=== PATIENT | male | born 1965 | race Caucasian/White ===

== ENCOUNTER → 2017-03-12 07:44 | Outpatient (CLI) | payer MEDICARE ==
[2014-11-25 13:59] VITALS: BMI 21.3
[~2017-03-12 07:44] MED LIST: BAYER CHEWABLE81 MG PO; FLUTICASONE PRO16 GM NASAL; NICODERM C1 PATCH .1 TRANSDERM; OXYCODONE HCL5 MG PO; SOMA350 MG PO; VALIUM10 MG PO
== END | disposition home or self-care (01) ==
LOC: D.MRI 07:44
DX: M54.5 Low back pain (principal)

== ENCOUNTER 2018-10-23 18:15 | Inpatient (IN) | payer OTHER ==
[~2018-10-23] VITALS: Ht 167.6 cm; Wt 58.1 kg
--- NOTE | ~2018-10-23 | HEMODYNAMI ---
PATIENT:EDUARD BELL MEDICAL RECORD: [id number] : 67 LOCATION:[facility] D.2116 ADMISSION DATE: 10/23/18 Generatedon:10/24/201816:07 Patient name: EDUARD BELL Patient #: [id number] SSN: : 1965 Date of study: 10/24/2018 Page: Of Hemodynamic Procedure Report Patient Data Patient Demographics Procedure consent was obtained First Name: EDUARD Gender: Male Last Name: RAY : 1965 Middle Initial: BEBO Age: 53 year(s) Patient #: [id number] Race: Unknown Additional ID: [id number] Contact details Address: [address] [place] [address] State: [facility] Zip code: [address] Past Medical History Allergies Allergen Reaction Date Comments Reported Other allergy 10/24/2018 PCN, Methocarbamol, Robaxin Admission Admission Data Admission Date: 10/23/2018 Admission Time: 18:15 Room #: D.2116 Lab Results Lab Result Date: 10/24/2018 Lab Result Time: 0:00 Biochemistry Name Units Result Min Max BUN mg/dl 11 --(-*--)-- 7 18 Creatinine mg/dl 0.9 --(-*--)-- 0.6 1.3 CBC Name Units Result Min Max Hemoglobin g/dl 12.4 *-(----)-- 13.5 17.5 Procedure Procedure Types Cath Procedure Diagnostic Procedure C LH w/Coronaries PCI Procedure Coronary Stent Coronary Stent Initial Procedure Description Procedure Date Procedure Date: 10/24/2018 Procedure Start Time: 15:33 Procedure End Time: 16:06 Procedure Staff Name Function Eduard Hoyt MD Performing Physician Kamila Law RT Monitor Lisseth Hood RT Scrub Tawny Chopra RT Scrub Bayron Jensen RN Nurse Procedure Data Cath Procedure Fluoroscopy Diagnostic fluoroscopy Total fluoroscopy Time: 7.3 time: 7.3 min min Diagnostic fluoroscopy Total fluoroscopy dose: 753 dose: 753 mGy mGy Contrast Material Contrast Material Type Amount (ml) Isovue 300 123 Entry Location Entry Primary Successful Side Size Upsize Upsize Entry Closure Arechiga ccessful Closure Location (Fr) 1 (Fr) 2 (Fr) Remarks Device Remarks Radial Right 6 Fr Mechanical TR band artery Short Compression Estimated blood loss: 10 ml Diagnostic catheters Device Type Used For End Catheter Placement DIAGNOSTIC [place] 110cm 5 Procedure Fr catheter ([id number]) Procedure Complications No complications Procedure Medications Medication Administration Route Dosage 0.9% NaCl I.V. 100 ml/hr Oxygen etCO2 Nasal cannula 2 l/min Heparin Flush Bag added to field 2 bags (1000units/500ml NS) Lidocaine 2% added to field 20 Radial Cocktail added to field 1 syringe (Verapomil 2mg/Nitro 400mcg/Heparin 1500units) Versed I.V. 1 mg Fentanyl I.V. 50 mcg Versed I.V. 1 mg Fentanyl I.V. 50 mcg Radial Cocktail I.A. 1 syringe (Verapomil 2mg/Nitro 400mcg/Heparin 1500units) Versed I.V. 1 mg Heparin Bolus I.V. 5000 units Integrilin (Bolus I.V. 5 ml 2mg/ml) Integrilin (Bolus wasted 5 ml 2mg/ml) Hemodynamics Rest HGB: 12.4 (g/dl) Heart Rate: 67 (bpm) Pressure Samples Time Site Value (mmHg) Purpose Heart Use Rate(bpm) 15:40 LV 90/1,6 Snapshot 67 15:41 AO 68/43(54) Pullback 70 Gradients Valve Time Site Site 2 Mean SEP/DFP Peak To Heart Use 1 (mmHg) (sec/min) Peak Rate (mmHg) (bpm) Aortic 15:41 LV AO 6 11 70 68/43(54) Calculations Valve P-P Mean Valve Index Valve Source Name Gradient Area Flow (cm2) Aortic 6 6 Snapshots Pre Cath Intra NCS Post Cath Vital Signs Time Heart Resp SPO2 etCO2 NIBP Rhythm Pain Sedation Rate (ipm) (%) (mmHg) (mmHg) Status Level (bpm) 15:05:29 55 15 100 0 99/64(76) NSR 0 (11) 10(A) , No pain 15:09:27 56 11 100 36.1 106/72(81) NSR 0 (11) 10(A) , No pain 15:13:33 52 16 100 38.3 100/58(73) NSR 0 (11) 10(A) , No pain 15:17:34 54 13 100 30.8 93/59(72) NSR 0 (11) 10(A) , No pain 15:21:32 51 11 100 0 96/62(73) NSR 0 (11) 10(A) , No pain 15:25:36 50 14 100 0 98/56(73) NSR 0 (11) 10(A) , No pain 15:29:37 54 10 97 0 95/58(72) NSR 0 (11) 10(A) , No pain 15:33:39 53 19 99 0 104/55(69) NSR 0 (11) 10(A) , No pain 15:37:39 68 14 98 0 98/74(85) NSR 0 (11) 10(A) , No pain 15:41:42 67 19 96 0 88/50(65) NSR 0 (11) 9(A) , No pain 15:45:46 60 19 94 0 87/42(63) NSR 0 (11) 9(A) , No pain 15:49:46 78 15 95 0 97/52(70) NSR 0 (11) 9(A) , No pain 15:53:50 67 18 97 0 91/54(66) NSR 0 (11) 10(A) , No pain 15:57:51 72 19 98 0 96/51(71) NSR 0 (11) 10(A) , No pain 16:01:49 68 13 98 0 108/65(81) NSR 0 (11) 10(A) , No pain 16:05:53 58 11 99 0 108/69(85) NSR 0 (11) 10(A) , No pain Medications Time Medication Route Dose Verified Delivered Reason Not es Effectiveness by by 15:12:14 0.9% NaCl I.V. 100 Bayron Bayron Per physician ml/hr Camila Jensen RN RN 15:12:29 Oxygen etCO2 2 l/min Bayron Bayron for low 02 sats Nasal Camila Jensen cannula RN RN 15:12:44 Heparin Flush added 2 bags Bayron Bayron used for Bag to Camila Jensen procedure (1000units/500ml field RN RN NS) 15:12:55 Lidocaine 2% added 20ml Bayron Bayron for local to vial Lorigan Loredwin anesthetic RN RN 15:13:19 Radial Cocktail added 1 Bayron Bayron used for (Verapomil to syringe Lorigan Loredwin procedure 2mg/Nitro field RN RN 400mcg/Heparin 1500units) 15:27:54 Versed I.V. 1 mg Bayron Bayron for sedation Camila Jensen RN RN 15:28:03 Fentanyl I.V. 50 mcg Bayron Bayron for sedation Camila Jensen RN RN 15:35:24 Versed I.V. 1 mg Bayron Bayron for sedation Camila Jensen RN RN 15:35:30 Fentanyl I.V. 50 mcg Bayron Bayron for sedation Camila Jensen RN RN 15:39:53 Radial Cocktail I.A. 1 Bayron Eduard for (Verapomil syringe Lorigan Lai vasodilation 2mg/Nitro OKSANA HA 400mcg/Heparin 1500units) 15:40:05 Versed I.V. 1 mg Bayron Bayron for sedation Camila Jensen RN RN 15:50:21 Heparin Bolus I.V. 5000 Bayron Bayron for units Camila Jensen anticoagulation RN RN 15:50:37 Integrilin I.V. 5 ml Bayron Bayron for (Bolus 2mg/ml) Camila Jensen antiplatelet RN RN therapy 15:52:02 Integrilin wasted 5 ml Bayron Bayron to sharp's (Bolus 2mg/ml) Camila Jensen RN sterile supply technician Log Time Note 14:57:46 Diagnostic Cath Status : Elective 14:58:16 Kamila ACOSTA(R) sent for patient. Start room use. 14:58:17 Time tracking: Regular hours (M-F 7:00 - 5:00) 14:58:22 Plan of Care:Hemodynamics will remain stable., Cardiac rhythm will remain stable., Comfort level will be maintained., Respiratory function will remain adequate., Patient/ family verbilizes understanding of procedure., Procedure tolerated without complication., Recovers from procedure without complications.. 15:00:21 Patient received from Med II to CCL 2 Alert and oriented. Tansferred to table in Supine position. 15:00:22 Warm blankets applied, and destiny hugger turned on for patient comfort. 15:00:22 Correct patient and procedure confirmed by team. 15:00:23 Signed procedure consent form obtained from patient. 15:00:25 ECG and BP/O2 sat monitors applied to patient. 15:03:18 Snore? No 15:03:20 Sleep apnea? No 15:03:23 Deviated septum? No 15:03:25 Opens mouth fully? Yes 15:03:27 Sticks out tongue? Yes 15:03:31 Airway obstruction? No ? 15:03:41 Dentures? Yes in tight 15:04:13 Vital chart was started 15:: Rhythm: sinus rhythm 15:04:49 H&P Date Dictated: 10/24/2018 Within 30 days and on chart.. 15:04:51 Pre-procedure instructions explained to patient. 15:04:56 Pre-op teaching completed and patient verbalized understanding. 15:05:11 Family in waiting room. 15:12:14 0.9% NaCl 100 ml/hr I.V. was administered by Bayron Jensen RN; Per physician; 15:12:29 Oxygen 2 l/min etCO2 Nasal cannula was administered by Bayron Jensen RN; for low 02 sats; 15:12:44 Heparin Flush Bag (1000units/500ml NS) 2 bags added to field was administered by Bayron Jensen RN; used for procedure; 15:12:55 Lidocaine 2% 20ml vial added to field was administered by Bayron Jensen RN; for local anesthetic; 15:13:19 Radial Cocktail (Verapomil 2mg/Nitro 400mcg/Heparin 1500units) 1 syringe added to field was administered by Bayron Jensen RN; used for procedure; 15:16:50 Patient allergic to Other allergyPCN, Methocarbamol, Robaxin 15:16:52 Is the patient allergic to Iodine/contrast media? No. 15:16:53 Was the patient premedicated? Yes 15:16:55 Is patient on blood thinner?No 15:16:57 Patient diabetic? No. 15:17:02 Snore? Yes 15:17:11 Pre procedure: right dorsailis pedis pulse 2+ Normal; easily identifiable; not easily obliterated 15:17:15 Patient pain scale 0/10 ?. 15:17:58 IV patent on arrival in right forearm with 0.9% NaCl at [facility]. 15:18:51 Lab Result : BUN 11 mg/dl 15:18:51 Lab Result : Hemoglobin 12.4 g/dl 15:18:51 Lab Result : Creatinine 0.9 mg/dl 15:18:59 Lab results completed and on chart. 15:19:03 Right Radial & Right Groin area was prepped with chlora-prep and draped in sterile fashion 15:19:05 Alarms reviewed by RSmitha N. 15:19:06 Sharps counted by scrub and verified by R.N. 15:19:07 Physician paged 15::20 Physician arrived 15:: --------ALL STOP TIME OUT------ 15::21 Final Timeout: patient, procedure, and site verified with staff and physician. All members of the team are in agreement. 15::23 Zero performed for pressure channel P1 15:27:32 Right Radial & Right Groin site verified by team. 15:27:41 Fire Safety Assessment: A--An alcohol-based skin anteseptic being used preoperatively., C--Open oxygen or nitrous oxide is being used., D--An ESU, laser, or fiber-optic light is being used. 15:27:45 Physical assessment completed. ASA score P 2 - A patient with mild systemic disease as per Eduard Hoyt MD. 15:27:48 Sedation plan: IV Moderate Sedation Medication:Versed, Fentanyl 15:27:52 Use device set Radial Dx or PCI 15:27:54 Versed 1 mg I.V. was administered by Bayron Jensen RN; for sedation; 15:27:54 ACIST Syringe (32781) opened to sterile field. 15:27:54 Medline Cath Pack ([id number]) opened to sterile field. 15:27:55 Bag Decanter (2002) opened to sterile field. 15:27:55 DIAGNOSTIC WIRE .035 260cm J wire (012606) opened to sterile field. 15:27:56 ACIST Hand Control (17613) opened to sterile field. 15:27:57 ACIST Manifold (87193) opened to sterile field. 15:27:58 Tegaderm 4 x 4 (1626W) opened to sterile field. 15:27:59 MBrace Wrist Support ([id number]) opened to sterile field. 15:28:03 Fentanyl 50 mcg I.V. was administered by Bayron Jensen RN; for sedation; 15:28:05 SHEATH 6FR Slender (13-2273) opened to sterile field. 15:33:50 Procedure started. 15:33:51 Full Disclosure recording started 15:35:24 Versed 1 mg I.V. was administered by Bayron Jensen RN; for sedation; 15:35:30 Fentanyl 50 mcg I.V. was administered by Bayron Jensen RN; for sedation; 15:38:15 A 6 Fr Short sheath was inserted into the Right Radial artery 15:39:23 A DIAGNOSTIC [place] 110cm 5 Fr catheter (317707) was advanced over the wire and used for Procedure. 15:39:36 LV angiography performed. 15:39:53 Radial Cocktail (Verapomil 2mg/Nitro 400mcg/Heparin 1500units) 1 syringe I.A. was administered by Eduard Hoyt MD; for vasodilation; 15:40:05 Versed 1 mg I.V. was administered by Bayron Jensen RN; for sedation; 15:40:27 LV gram done using DUNHAM 15:41:22 EF : 55 % 15:41:57 LCA angiography performed. 15:43:00 RCA angiography performed. 15:44:43 Catheter removed. 15:45:06 Proceeding to intervention. 15:45:29 INFLATOR Merit BasixCompak (SU2024) opened to sterile field. 15:45:30 WHISPER 300cm guide wire ([id number]) opened to sterile field. 15:45:32 GUIDE 6FR HS I catheter (LA6HSI) opened to sterile field. 15:49:03 6 Fr HS1 guide catheter was inserted over the wire 15:49:07 Guide catheter removed. 15:49:28 GUIDE 6FR AR 1.0 catheter ([id number]) opened to sterile field. 15:50:21 Heparin Bolus 5000 units I.V. was administered by Bayron Jensen RN; for anticoagulation; 15:50:29 6 Fr AR1 guide catheter was inserted over the wire 15:50:34 whisper wire advanced. 15:50:37 Integrilin (Bolus 2mg/ml) 5 ml I.V. was administered by Bayron Jensen RN; for antiplatelet therapy; 15:52:02 Integrilin (Bolus 2mg/ml) 5 ml wasted was administered by Bayron Jensen RN; to yanet's; 15:53:50 Wire advanced across lesion. 15:55:09 Place stent Inflation Number: 1 A INTEGRITY OTW 3.5 X 30 stent ([id number]) was prepped and advanced across the Dist RCA. The stent was deployed at 16 MARILIN for 0:17 (min:sec). 15:55:25 Stent catheter was removed intact over wire. 15:57:33 Place stent Inflation Number: 1 A INTEGRITY OTW 3.5 X 30 stent ([id number]) was prepped and advanced across the Mid RCA. The stent was deployed at 16 MARILIN for 0:16 (min:sec). 15:57:38 Stent catheter was removed intact over wire. 16:01:52 Wire removed. 16:01:53 Guide catheter removed. 16:02:01 TR BAND Standard ([id number]) opened to sterile field. 16:02:31 Sheath removed intact; hemostasis achieved with Mechanical Compression to the Right Radial artery. 16:02:34 Procedure ended.(Physican Out) 16:03:42 Contrast amount:Isovue 300 123ml. 16:03:43 Sharps counted by scrub and verified by R.N. 16:03:47 TR band inflated with 11cc of air. 16:03:52 Insertion/operative site no bleeding no hematoma. 16:04:31 Post-op/insertion site Right Radial artery dressed using a 4 x 4 and Tegaderm. 16:04:38 Post right radial artery:stable 16:04:45 Post Procedure Pulses reassessed and unchanged 16:04:50 Post-procedure physical assessment completed. ASA score P 2 - A patient with mild systemic disease as per Eduard Hoyt MD. 16:04:54 Post procedure rhythm: sinus rhythm 16:04:58 Estimated blood loss: 10 ml 16:05:24 Post procedure instruction explained to patient.Patient verbalizes understanding. 16:05:24 Patient needs reinforcement of post procedure teaching. 16:05:39 Procedure type changed to Cath procedure, Diagnostic procedure, LHC, LHC w/Coronaries, PCI procedure, Coronary Stent, Coronary Stent Initial 16:05:44 Procedure and supply charges have been captured, reviewed, submitted and are correct. 16:06:07 Procedure Complication : No complications 16:06:11 Vital chart was stopped 16:06:15 See physician's report for complete and final results. 16:06:17 Report given to Pre/Post Procedure Room. 16:06:21 Patient transfered to Pre/Post Procedure Room with Stretcher. 16:06:23 Procedure ended. 16:06:23 Full Disclosure recording stopped 16:06:26 End room use (Document Last) 16:06:52 Fluoroscopy dose: 753 mGy 16:06:52 Flurop Dose total: 753 16:07:03 Fluoroscopy time 07.30 minutes. Intervention Summary Intervention Notes Time ActionType Lesion and Equipment Action# Pressure Duration Attributes Used 15:55:09 Place stent Dist RCA INTEGRITY 1 16 00:17 OTW 3.5 X 30 stent ([id number]) 15:57:33 Place stent Mid RCA INTEGRITY 1 16 00:16 OTW 3.5 X 30 stent ([id number]) Device Usage Item Name Manufacture Quantity Catalog Hospital Part Current Minimal Lot# / Number Charge Number Stock Stock Serial# Code ACIST Acist 1 90926 852134 673501 521362 20 Syringe Medical (25298) Systems Inc Medline Medline 1 [id number] 673478 15648 993343 5 Cath Pack ([id number]) Bag Microtek 1 2001S 514509 94535 979568 5 Decanter Medical Inc. (2001S) DIAGNOSTIC St Armen 1 961770 118994 332500 984299 30 WIRE .035 260cm J wire (743586) ACIST Hand Acist 1 73161 274659 786703 885175 5 Control Medical (21638) Systems Inc ACIST Acist 1 06699 435303 659863 486090 5 Manifold Medical (10478) Systems Inc Tegaderm 4 3M 1 1626W 751225 131641 606478 5 x 4 (1626W) MBrace Advanced 1 140-0250-00 768043 63733 301068 5 Wrist Vascular Support Dynamics ([id number]) SHEATH 6FR Terumo 1 [id number] 898538 358845 449269 5 Slender (80-1060) DIAGNOSTIC Terumo 1 40-9103 492672 234113 619818 5 [place] 110cm 5 Fr catheter (861446) INFLATOR [facility] 1 SO9570 748355 032000 079366 15 [facility] Medical BasixCompak (NV7772) WHISPER Nichols 1 [id number] 001745 870343 861299 5 300cm guide Vascular wire (0254444LD) GUIDE 6FR Medtronic 1 LA6HSI 053870 93168 109753 1 HS I catheter (LA6HSI) GUIDE 6FR Medtronic 1 BA2ZP59 320556 45625 231537 1 AR 1.0 catheter (EF7NP21) INTEGRITY Medtronic 2 [id number] 810803 802381 859364 4 [id number] OTW 3.5 X [id number] 30 stent ([id number]) TR BAND Terumo 1 ZNC60-ICF 964402 642376 550694 40 Standard (ZDW99API) Signature Audit Ney Stage Time Signature Unsigned Intra-Procedure 10/24/2018 Kamila Law 4:07:24 PM RT(R) Signatures Monitor : Kamila Law Signature : RT Date : Time : [place] [place] [address]
[2018-10-23 19:49] LABS: BASOPHILS 0.1 % (0-2); EOSINOPHILS 0.1 % (0-7); HEMATOCRIT 38.7 % (42.0-54.0); HEMOGLOBIN 13.2 g/dL (13.5-17.5); IMMATURE GRANULOCYTES 0.3 % (0-5); LYMPHOCYTES 24.9 % (15-50); MCHC 34.1 g/dL (31.0-37.0); MCV 96.8 fL (80.0-100.0); MONOCYTES 7.4 % (2-11); NEUTROPHILS 67.2 % (40-80); RDW 12.7 % (11.5-14.5); WBC 7.9 10x3/uL (4.8-10.8)
[2018-10-23 20:03] LABS: PLATELET COUNT 192 10x3/uL (130-400)
--- NOTE | 2018-10-23 20:19 | NUR ---
RESUMED CARE OF PT, LYING IN BED RESPIRATIONS EVEN AND UNLABORED ON 2LPM VIA NC. URINAL PROVIDED TO OBTAIN SPECIMEN. 20 GAUGE TO RIGHT FOREARM X 1 STICK. PLACED ON TELEMETRY. PLAN OF CARE DISCUSSED, NPO AFTER MIDNIGHT TONIGHT. CALL LIGHT IN REACH. SEE NURSE ASSESSMENT.
[2018-10-23 20:25] LABS: CALCIUM 8.3 mg/dL (8.5-10.1); CARBON DIOXIDE 29.5 mmol/L (21.0-32.0); CHLORIDE - SERUM 104 mmol/L (98-107); CKMB 110.9 U/L (0.0-3.6); CREATININE - SERUM 0.9 mg/dL (0.6-1.3); POTASSIUM - SERUM 3.7 mmol/L (3.5-5.1); SODIUM 143 mmol/L (136-145); UREA NITROGEN 14 mg/dL (7-18); eGFR NON AFRICAN AMERICAN > 90 mL/min (90-120)
[2018-10-23 20:29] LABS: CALC OSMOLALITY 288 mosm/kg (275-300); CREATINE KINASE 1352 UL (21-232); GLUCOSE 146 mg/dL (74-106)
[2018-10-23 20:37] LABS: TROPONIN-I 42.253 ng/mL (0.000-0.060)
--- NOTE | 2018-10-23 21:04 | NUR ---
DR. TAMAYO PAGED ABOUT ELEVATED ENZYMES, AWAITING CALL BACK.
--- NOTE | 2018-10-23 21:07 | NUR ---
NEW ORDERS RECEIVED.
[2018-10-23 22:04] VITALS: BP 84/47
[2018-10-23 22:16] VITALS: BP 84/47; BMI 20.7
[2018-10-24] VITALS (8 sets, daily range): BP systolic 81–95; BP diastolic 45–58; Ht 167.6 cm; Wt 58.1 kg
[2018-10-24 02:09] LABS: CREATINE KINASE 936 UL (21-232); TROPONIN-I 43.297 ng/mL (0.000-0.060)
--- NOTE | 2018-10-24 07:10 | NUR ---
REPORT RECIEVED FROM FUEL ASSEMBLER. PATIENT LAYING IN BED ON BACK AWAKE, ALERT AND ORIENTED X4. VSS WITH BP LOW. PATIENT DENIES ANY SOB OR CHEST PAIN. WILL CONTACT DR TAMAYO REGARDING BP. WILL CONTINUE WITH PLAN OF CARE.
--- NOTE | 2018-10-24 07:20 | NUR ---
DR TAMAYO ON UNIT. INFORMED DR OF LOW BP'S. NO NEW ORDERS OR INSTRUCTIONS REGARDING LOW BP. PER DR TAMAYO, PATIENT MAY EAT BREAKFAST THIS AM THEN NPO FOR HEART CATH THIS AFTERNOON. PATIENT COMPLAINS OF LOW BACK PAIN OF AN '8." MEDICATED PER NOV WITH PERCOCET. WILL CONTINUE TO MONITOR CLOSELY.
[2018-10-24 08:36] LABS: BASOPHILS 0.1 % (0-2); EOSINOPHILS 0.4 % (0-7); HEMATOCRIT 36.8 % (42.0-54.0); HEMOGLOBIN 12.4 g/dL (13.5-17.5); IMMATURE GRANULOCYTES 0.2 % (0-5); LYMPHOCYTES 33.3 % (15-50); MCH 32.2 pg (26.0-34.0); MCHC 33.7 g/dL (31.0-37.0); MCV 95.6 fL (80.0-100.0); MEAN PLATELET VOLUME 11.1 fL (7.4-10.4); MONOCYTES 8.8 % (2-11); NEUTROPHILS 57.2 % (40-80); PLATELET COUNT 196 10x3/uL (130-400); RBC 3.85 10x6/uL (4.20-6.10); RDW 12.7 % (11.5-14.5); WBC 8.5 10x3/uL (4.8-10.8)
[2018-10-24 08:47] LABS: CALC OSMOLALITY 279 mosm/kg (275-300); CALCIUM 8.1 mg/dL (8.5-10.1); CARBON DIOXIDE 27.5 mmol/L (21.0-32.0); CHLORIDE - SERUM 105 mmol/L (98-107); CKMB 35.1 U/L (0.0-3.6); CREATINE KINASE 736 UL (21-232); CREATININE - SERUM 0.9 mg/dL (0.6-1.3); GLUCOSE 100 mg/dL (74-106); SODIUM 141 mmol/L (136-145); TROPONIN-I 33.164 ng/mL (0.000-0.060); UREA NITROGEN 11 mg/dL (7-18); eGFR NON AFRICAN AMERICAN > 90 mL/min (90-120)
--- NOTE | 2018-10-24 10:00 | NUR ---
PATIENT RESTING COMFORTABLY IN BED WITH EYES CLOSED AND BREATHING EVENLY. FAMILY AT BEDSIDE. VSS. WILL CONTINUE TO MONITOR.
[2018-10-24 10:28] LABS: CHOL - HDL RATIO 3.7 ratio (2.3-4.9); LDL-HDL RATIO 2.4 ratio (1.5-3.5)
--- NOTE | 2018-10-24 12:30 | NUR ---
PATIENT SITTING UP IN BED VISITING WITH FAMILY. PATIENT DENIES ANY NEEDS OR PAIN. VSS. WILL CONTINUE TO MONITOR.
--- NOTE | 2018-10-24 14:30 | NUR ---
PHONE CALL RECIEVED FROM RECRUITING OPERATIONS CONSULTANT TEAM FOR PRE OP. PATIENT MEDICATED PER MAR ORDERS. PATIENT RESTING COMFORTABLY . VSS. FAMILY AT BEDSIDE. SR UP X 2 BED IN LOW POSTION AND CALL LIGHT IN REACH.
--- NOTE | 2018-10-24 15:00 | NUR ---
PATIENT IS STABLE AND UNCHANGED. VSS. PATIENT TO VESSEL CREW MEMBER VIA BED AND VESSEL CREW MEMBER PERSONNEL. FAMILY IN ROOM.
--- NOTE | 2018-10-24 17:00 | NUR ---
PATIENT RETURNED FROM MEAT PRESS OPERATOR. PATIENT IS STABLE. VSS. TR BAND WITH 11 CC TO RT RADIUS. FAMILY AT [facility]. SR UP X 2 CALL LIGHT IN REACH AND BED IN LOW P[OSTION. WILL CONTINUE TO MONITOR.
--- NOTE | 2018-10-24 17:45 | NUR ---
CALLED TO PATIENTS ROOM . FAMILY NOT IN ROOM. PATIENT STATES GOT UP TO BATHROOM. TRBAND IN PLACE BUT BRB AT SITE. 5 CCS OF AIR NOTED. 11 CC AIR RE-INSTILLED IN BAND. NO BLEEDING NOTED. NO BRUISING OR HEMATOMA APPARENT. WILL CONTINUE TO MONITOR COMFORT.
--- NOTE | 2018-10-24 18:00 | NUR ---
TR BAND IN PLACE. NO BLEEDING, BRUISING OR HEMATOMA NOTED. VSS. PATIENT LAYING ON BACK IN BED WIH EYES CLOSED AND BREAHING EVENLY. SR UP X 2 BED IN LOW PSOTION AND CALL LIGHT IN REACH.
--- NOTE | 2018-10-24 19:29 | NUR ---
RESUMED CARE OF PT, LYING IN BED WITH EYES CLOSED RESPIRATIONS EVEN AND UNLABORED ON ROOM AIR. RIGHT WRIST TR BAND C/D/I. RIGHT FOREARM INFUSING NS @ 200. NO NEEDS NOTED AT THIS TIME, CALL LIGHT IN REACH. SEE NURSE ASSESSMENT.
--- NOTE | 2018-10-24 20:11 | NUR ---
ATTEMPTED TO REMOVED AIR FROM TR BAND, IMMEDIATE BLOOD RETURN, INSTILLED 2 CC THAT WAS REMOVED.
[2018-10-25 00:50] VITALS: BP 91/58
--- NOTE | 2018-10-25 04:00 | NUR ---
CLAIMS SORTER AT BEDSIDE TO OBTAIN VITALS, CALL LIGHT IN REACH. WILL CONTINUE WITH PLAN OF CARE.
[2018-10-25 05:35] VITALS: BP 99/60
--- NOTE | 2018-10-25 07:20 | NUR ---
ASSESSMENT DONE. DENIES NEEDS.
[2018-10-25 08:17] VITALS: BP 117/78
--- NOTE | 2018-10-25 08:23 | OP ---
PATIENT NAME: APOLLO BELL MEDICAL RECORD: [id number] :67 LOCATION:D.M2 D.2116 ADMISSION DATE:10/23/18 SURGEON: APOLLO TAMAYO MD DATE OF OPERATION: 10/24/2018 PROCEDURES: Left heart catheterization, selective coronary angiography plus stent to the right coronary artery, right radial approach. CATHETERS: Radial sheath, [place] catheter. The procedure was well tolerated, the patient was returned to the ga, sheaths were removed. A TR band was placed. FINDINGS: Left ventriculography in 30-degree DUNHAM view: Normal wall motion and normal systolic function. CORONARY ANATOMY: LEFT MAIN: Left main is free of disease. LAD: Free of disease in the diagonal system. CIRCUMFLEX: Has about 70% stenosis of the small OM1. RIGHT CORONARY ARTERY: Huge vessel, giving rise to PDA. Obviously dominant artery in the right with severe diffuse stenosis approaching 90% at its worst portion. PLAN: Intervention momentarily. DESCRIPTION OF PROCEDURE: Using indwelling sheath, AR guiding catheter provided good guide catheter support, followed by 300 cm Whisper wire, it was placed across the diffuse disease down this portion of vessel. Stents deployed were 3.5 x 30 followed by a second 3.5 x 30 both Integrity nondrug-eluting stents up to 16 atmospheres for 45 seconds. Final injection shows resolution of the severe diffuse stenosis, from most severe 90% stenosis with no residual. AZUCENA flow was 3 through the procedure. Heparin was used in the case. The patient was previously loaded with Plavix. Sheath closed with ExoSeal device. TRANSINT:[id number] Voice Confirmation ID: [id number] DOCUMENT ID: [id number] APOLLO TAMAYO MD at 0823 CC: [id number] DICTATION DATE: 10/24/18 1607 MUSHROOM LABORER: 10/24/187 ADM IN [place] [id number] [place] [address]
--- NOTE | 2018-10-25 08:23 | CN ---
PATIENT NAME:APOLLO BELL MEDICAL RECORD: [id number] : 67 LOCATION:[facility] D.2116 ADMIT DATE: 10/23/18 ACCOUNT: [id number] CONSULTING PHYSICIAN: APOLLO TAMAYO MD REFERRING PHYSICIAN: CAROLA ALAS MD DATE OF CONSULTATION: 10/24/2018 HISTORY OF PRESENT ILLNESS: A 53-year-old gentleman with known history of coronary artery disease, he has a history of hypertension, a strong family history of coronary artery disease. His father of [place] in his 50s, had chest pain approximately 2 days ago, lasted intermittently off and on throughout the night, presented to the primary care, was found to have abnormal ECG, elevated cardiac enzymes consistent with NSTEMI. We are asked to see him concerning his cardiovascular status. PAST MEDICAL HISTORY: Includes history of hypertension and chronic back pain. ALLERGIES: PENICILLIN, ROBAXIN. MEDICATIONS: Include Valium 10 mg p.o. b.i.d., Roxicodone 10 mg every 4 hours. SOCIAL HISTORY: Disabled due to back issues and no illicit drug use. REVIEW OF SYSTEMS: The patient reports easy bruising but reports no swollen glands. The patient reports no fever, no night sweats, no significant weight gain, no significant weight loss. No significant exercise tolerance. The patient reports no dry eyes, no irritation, no vision change. Patient reports no difficulty hearing and no ear pain. Patient reports no frequent nose bleeds or nose and sinus problems. Patient reports on arm pain on exertion. No shortness of breath while lying down. No history of heart murmur. Patient reports no cough, no wheezing or coughing up blood. Patient reports no abdominal pain, no vomiting. Normal appetite. No diarrhea and not vomiting blood. No nausea and no constipation. Patient reports no incontinence. No difficulty urinating. No hematuria. No increased frequency. Patient reports no muscle aches. No weakness, no arthralgias, no back pain. No swelling of the extremities. Patient reports no abnormal mole, no jaundice, no rashes. Reports no loss of consciousness. No weakness and no numbness. No seizures, dizziness, or headaches. The patient reports no depression, no sleep disturbance, feeling safe in a relationship and no alcohol abuse. Patient reports on fatigue. Reports no runny nose or sinus pressure. No itching, no hives, and no frequent sneezing. PHYSICAL EXAMINATION: GENERAL: A thin gentleman in no acute distress, appears stated age. HEENT: Normocephalic, atraumatic. NECK: No bruits noted. HEART: Regular. A II/ systolic ejection murmur noted. LUNGS: Good air excursion. ABDOMEN: Soft, nontender. EXTREMITIES: Pulse 2+. No edema. DIAGNOSTIC DATA: ECG shows nonspecific ST-T changes. IMPRESSION: Ggv-[id number]-unzignpsr myocardial infarction. CONSULT REPORT [id number] APOLLO BELL PLAN: For angiography, intervention based on the above. TRANSINT:[id number] Voice Confirmation ID: [id number] DOCUMENT ID: [id number] APOLLO TAMAYO MD at 0823 CC: [id number] DICTATION DATE: 10/24/18750 CAN MACHINE OPERATOR: 10/24/18 [address] [facility] [address] [id number]
--- NOTE | 2018-10-25 10:41 | NUR ---
UP AMBULATING HALLWAY. TELEMETRY SR 70. GAIT STEADY.
--- NOTE | 2018-10-25 11:43 | NUR ---
REVIEWED AND AGREE WITH ASSESMENT.
[2018-10-25] MEDS ORDERED: PLAVIX75 MG PO (12:21)
[2018-10-25] MEDS ORDERED: ASPIRIN81 MG PO (12:29)
--- NOTE | 2018-10-25 13:25 | NUR ---
CALLED [facility] TO [facility]. SPOKE WITH LEONARDO/PHARMACIST
--- NOTE | 2018-10-25 13:39 | NUR ---
DC GIVEN TO PT
--- NOTE | 2018-10-25 13:59 | NUR ---
DC HOME PER PERSONAL CAR
--- NOTE | 2018-10-25 15:48 | MORECARE ---
CASE MANAGEMENT DISCHARGE SUMMARY PATIENT: APOLLO BELL UNIT: [id number] ADM DATE: 10/23/18 AGE: 53 : 67 SEX: M ROOM/BED: D.2116 AUTHOR: MINDA CARREON PHYSICIAN: REFERRING PHYSICIAN: CAROLA ALAS MD DATE OF SERVICE: 10/25/18 Discharge Plan Patient Name: APOLLO BELL Facility: [facility]:[place] : 1965 Planned Disposition: Home Anticipated Discharge Date: 10/19/18 Discharge Date: 10/25/2018 Expected LOS: -4 Initial Reviewer: [email or web address] Initial Review Date: 10/25/2018 Generated: 10/25/18 4:47 pm DCPIA - Discharge Planning Initial Assessment Updated by [id number]: Kapil Noriega on 10/25/18 3:45 pm * Is the patient Alert and Oriented? Yes * How many steps to enter\exit or inside your home? * PCP DR. ALAS * Pharmacy [facility] * Preadmission Environment Home with Family * ADLs Independent * Equipment None * Other Equipment NO MEDICAL EQUIPMENT PREFERENCE * List name and contact numbers for known caregivers / representatives who currently or will assist patient after discharge: ROSALVA BELL, SPOUSE, * Verbal permission to speak to the caregivers and representatives has been obtained from the patient. Yes * Community resources currently utilized None * Please name any agencies selected above. NONE * Additional services required to return to the preadmission environment? No * Can the patient safely return to the preadmission environment? Yes * Has this patient been hospitalized within the prior 30 days at any hospital? No Coverage Notice Reviewer: [email or web address] - Kapil Noriega Notice Issued Date-Time: 10/25/2018 11:00 Notice Type: IM Discharge Notice Notice Delivered To: Patient Relationship to Patient: Solar Sales Representative And Assessor Name: Delivery Method: HAND - Hand Delivered Patricia Days: Prior Verbal Notification: Recipient Understood Notice: Yes Recipient Signature: Yes Med Rec Note Co-signed by Attending: Coverage Notice Comment: Patient Name: APOLLO BELL Page 58562 at 1548 All edits/amendments must be made on the electronic document DICTATION DATE: 10/25/18 1547 MEDICAL CASE MANAGER: JESSICA 10/25/18 1547 RPT#: [id number] DC DATE:10/25/18 STATUS: DIS IN [facility] [address] [place] [address] END OF REPORT
--- NOTE | 2018-10-25 15:57 | MORECARE ---
CASE MANAGEMENT DISCHARGE SUMMARY PATIENT: APOLLO BELL UNIT: [id number] ADM DATE: 10/23/18 AGE: 53 : 67 SEX: M ROOM/BED: D.2306 AUTHOR: LAURI,DOC PHYSICIAN: REFERRING PHYSICIAN: CAROLA ALAS MD DATE OF SERVICE: 10/25/18 Discharge Plan Patient Name: APOLLO BELL Facility: [facility]:[place] : 1965 Planned Disposition: Home Anticipated Discharge Date: 10/19/18 Discharge Date: 10/25/2018 Expected LOS: -4 Initial Reviewer: [email or web address] Initial Review Date: 10/25/2018 Generated: 10/25/18 4:57 pm Comments DCP- Discharge Planning Updated by [email or web address]: Kapil Noriega on 10/25/18 2:[address] Patient Name: APOLLO BELL Admission Status: Elective Accout number: [id number] Admission Date: 10-23-2018 : 1965 Admission Diagnosis:ABNORMAL ELECTROCARDIOGRAM [ECG] [EKG] Attending: CAROLA ALAS Current LOS: 2 Anticipated DC Date: 10-19-2018 Planned Disposition: Home Primary Insurance: [employer] Discharge Planning Comments: CM MET WITH PT AND SPOUSE IN ROOM TO DISCUSS DISCHARGE PLANNING AND NEEDS. APOLLO BELL provided verbal consent to discuss current and ongoing needs with/in the presence of: SPOUSE, ROSALVA. PT REPORTS LIVING AT HOME INDEPENDENTLY WITH HIS SPOUSE. PT HAS NO MEDICAL EQUIPMENT AND NO OUTSIDE SERVICES ASSISTING IN THE HOME. CM DISCUSSED AVAILABILITY OF HOME HEALTH, REHAB SERVICES AND MEDICAL EQUIPMENT. PT DENIES DISCHARGE NEEDS, REPORTS HIS WILL IS HERE TO PICK HIM UP FOR DISCHARGE HOME. IMPORTANT MESSAGE FROM MEDICARE PROVIDED AND EXPLAINED. Insights Strategist: Kapil Noriega DCPIA - Discharge Planning Initial Assessment Updated by [email or web address]: Kapil Noriega on 10/25/18 3:45 pm * Is the patient Alert and Oriented? Yes * How many steps to enter\exit or inside your home? * PCP DR. ALAS * Pharmacy [facility] * Preadmission Environment Home with Family * ADLs Independent * Equipment None * Other Equipment NO MEDICAL EQUIPMENT PREFERENCE * List name and contact numbers for known caregivers / representatives who currently or will assist patient after discharge: ROSALVA BELL, SPOUSE, * Verbal permission to speak to the caregivers and representatives has been obtained from the patient. Yes * Community resources currently utilized None * Please name any agencies selected above. NONE * Additional services required to return to the preadmission environment? No * Can the patient safely return to the preadmission environment? Yes * Has this patient been hospitalized within the prior 30 days at any hospital? No Coverage Notice Reviewer: [email or web address] Lino Noriega Notice Issued Date-Time: 10/25/2018 11:00 Notice Type: IM Discharge Notice Notice Delivered To: Patient Relationship to Patient: Loan Workout Officer Name: Delivery Method: HAND - Hand Delivered Patricia Days: Prior Verbal Notification: Recipient Understood Notice: Yes Recipient Signature: Yes Med Rec Note Co-signed by Attending: Coverage Notice Comment: Last DP export: 10/25/18 2:48 p Patient Name: APOLLO BELL Page 75292 at 1557 All edits/amendments must be made on the electronic document DICTATION DATE: 10/25/181555 SIGN PAINTER: JESSICA 10/25/18 155 RPT#: [id number] DC DATE:10/25/18 STATUS: DIS IN [facility] [address] [place] [address] END OF REPORT
--- NOTE | 2018-10-29 14:51 | EC ---
PATIENT:APOLLO BELL BEBO DATE OF SERVICE: 10/23/18 SEX: M MEDICAL RECORD: [id number] DATE OF : [birth year] LOCATION:D.M2 D.211 AGE OF PATIENT: 53 ADMISSION DATE: 10/23/18 REFERRING PHYSICIAN: INTERPRETING PHYSICIAN: APOLLO TAMAYO MD ECHOCARDIOGRAM REPORT ECHO CHARGES 4 ECHO COMPLETE Date: 10/24/18 CLINICAL DIAGNOSIS: ANTERIOR TN ECHOCARDIOGRAPHIC MEASUREMENTS (adult normal given) AC root (d.<3.7cm) 3.0 cm LV Septum d (<1.2 cm> 1.2 cm Valve Excursion 1.5 cm LV Septum (systole) 1.5 cm Left Atria (s.<4.0cm> 3.9 cm LVPW d(<1.2cm) 1.2 cm RV (d.<2.3cm) 3.7 cm LVPW (sytole) 1.5 cm LV diastole(<5.6CM) 5.7 cm MV E-F(>70mm/sec) cm LV systole 4.3 cm LVOT Diameter 1.7 cm MV exc.(>10mm) 2.4 cm Est.ejection fraction (50-75%) % DOPPLER: LVIT cm/sec A 68.0 cm/sec E 92.0 cm/sec LA cm/sec RVSP 26 mmHg LVOT 106 cm/sec AOP1/2T m/s Asc. Ao 157 cm/sec RVOT 61 cm/sec RA cm/sec PA 96 cm/sec AV Gradient Peak 9.84 mmHg AV Mean 4.96 mmHg AV Area 1.5 cm MV Gradient Peak 3.81 mmHg MV Mean 1.15 mmHg MV Area cm COMMENTS: Grain Inspector: 2 OTONIEL DANIEL Public Safety Director: 3 Dr. Salinas TAPE# PACS Pericardial Effusion N DATE OF SERVICE: Adequate 2D, Color Flow, Spectral Doppler, And M-Mode Borderline LVH. LV internal dimension is normal. Wall motion is normal. EF is greater than 55%. Aortic valve is tricuspid. No evidence of stenosis by Doppler interrogation. Left atrium is normal. Mitral valve shows no prolapse. Trace MR. Right-sided chambers grossly normal. Trace TR. TRANSINT:[id number] Voice Confirmation ID: [id number] DOCUMENT ID: [id number] ECHOCARDIOGRAM REPORT [id number] RAYAPOLLO APOLLO LACY MD at 1451 CC: [id number] DICTATION DATE: 10/24/18 1620 MANAGER RETAIL STORE: 10/24/182235 DIS IN 10/25/18 [id number] [place] [address]
== END 2018-10-25 14:00 | disposition home or self-care (01) | DRG 249 ==
LOC: D.M2 18:15
PROVIDERS: Family Medicine Adult Medicine; Internal Medicine Interventional Cardiology; ADMIT Emergency Medicine
PROC: B2111ZZ Fluoroscopy of Multiple Coronary Arteries using Low Osmolar Contrast (ICD-10-PCS; 2018-10-24)
PROC: B2151ZZ Fluoroscopy of Left Heart using Low Osmolar Contrast (ICD-10-PCS; 2018-10-24)
PROC: 02703EZ Dilation of Coronary Artery, One Artery with Two Intraluminal Devices, Percutaneous Approach (ICD-10-PCS; principal; 2018-10-24 07:00)
PROC: 4A023N7 Measurement of Cardiac Sampling and Pressure, Left Heart, Percutaneous Approach (ICD-10-PCS; 2018-10-24 07:00)
DX: I21.4 Non-ST elevation (NSTEMI) myocardial infarction (principal); I25.10 Atherosclerotic heart disease of native coronary artery without angina pectoris; I10 Essential (primary) hypertension; R94.31 Abnormal electrocardiogram [ECG] [EKG]; J44.9 Chronic obstructive pulmonary disease, unspecified; Z72.0 Tobacco use

== ENCOUNTER 2019-05-08 18:32 | Inpatient (IN) | payer OTHER, MEDICAID ==
[~2019-05-08] VITALS: Ht 167.6 cm; Wt 52.2 kg
[~2019-05-08 18:32] MED LIST changes: +ASPIRIN81 MG PO; +PLAVIX75 MG PO
--- NOTE | 2019-05-08 19:15 | NUR ---
TRAUMA BAND: [id number] PT REPORT RECEIVED FROM JO RN USING SBAR COMMUNICATION.
[2019-05-08 19:16] LABS: BASOPHILS 0.1 % (0-2); EOSINOPHILS 0 % (0-7); HEMATOCRIT 38.6 % (42.0-54.0); HEMOGLOBIN 13.9 g/dL (13.5-17.5); IMMATURE GRANULOCYTES 0.4 % (0-5); LYMPHOCYTES 16.7 % (15-50); MCV 91.7 fL (80.0-100.0); MEAN PLATELET VOLUME 9.7 fL (7.4-10.4); MONOCYTES 6.5 % (2-11); NEUTROPHILS 76.3 % (40-80); PLATELET COUNT 207 10x3/uL (130-400); RBC 4.21 10x6/uL (4.20-6.10); WBC 11.1 10x3/uL (4.8-10.8)
[2019-05-08 19:32] LABS: ALBUMIN 3.7 g/dL (3.4-5.0); ALKALINE PHOSPHATASE 89 U/L (46-116); ALT (SGPT) 21 U/L (10-68); BILIRUBIN - TOTAL 0.38 mg/dL (0.2-1.3); CALC OSMOLALITY 281 mosm/kg (275-300); CALCIUM 8.3 mg/dL (8.5-10.1); CARBON DIOXIDE 22.8 mmol/L (21.0-32.0); CHLORIDE - SERUM 106 mmol/L (98-107); CREATININE - SERUM 0.8 mg/dL (0.6-1.3); GLUCOSE 84 mg/dL (74-106); POTASSIUM - SERUM 4.4 mmol/L (3.5-5.1); PROTEIN - SERUM 7.1 g/dL (6.4-8.2); SODIUM 143 mmol/L (136-145); UREA NITROGEN 8 mg/dL (7-18); eGFR NON AFRICAN AMERICAN > 90 mL/min (90-120)
[2019-05-08 19:46] LABS: INR 1.08 (0.85-1.17); PROTIME 13.5 SECONDS (11.6-15.0)
--- NOTE | 2019-05-08 22:04 | NUR ---
RECEIVED PT FROM ER VIA BED. IV TO THE LT AC WITH NS @125, CDI. PAIN 5/10 RESTING BUT CRIES OUT WHEN LEG IS MOVED. A/O WITH NO ACTUE SIGNS OF DISTRESS. WILL CONTIUE TO MONITOR.
[2019-05-09] VITALS (7 sets, daily range): BP systolic 124–148; BP diastolic 66–89; Ht 167.6 cm; Wt 52.2 kg
[2019-05-09 06:25] LABS: UDS - AMPHET NEGATIVE QUAL (NEGATIVE); UDS - BARB NEGATIVE QUAL (NEGATIVE); UDS - BENZO POSITIVE QUAL (NEGATIVE); UDS - COCAINE NEGATIVE QUAL (NEGATIVE); UDS - OPIATE POSITIVE QUAL (NEGATIVE); UDS - PCP NEGATIVE QUAL (NEGATIVE); UDS - THC POSITIVE QUAL (NEGATIVE)
[2019-05-09 06:26] LABS: BASOPHILS 0.1 % (0-2); EOSINOPHILS 0 % (0-7); HEMATOCRIT 35.4 % (42.0-54.0); HEMOGLOBIN 12.6 g/dL (13.5-17.5); IMMATURE GRANULOCYTES 0.3 % (0-5); MCH 32.6 pg (26.0-34.0); MCHC 35.6 g/dL (31.0-37.0); MCV 91.5 fL (80.0-100.0); MONOCYTES 12.4 % (2-11); NEUTROPHILS 64.2 % (40-80); PLATELET COUNT 174 10x3/uL (130-400); RBC 3.87 10x6/uL (4.20-6.10); RDW 12.9 % (11.5-14.5)
[2019-05-09 06:38] LABS: WBC 7.5 10x3/uL (4.8-10.8)
[2019-05-09 06:44] LABS: APTT 33.9 SECONDS (22.8-39.4); INR 1.16 (0.85-1.17); PROTIME 14.3 SECONDS (11.6-15.0)
[2019-05-09 06:56] LABS: CALC OSMOLALITY 277 mosm/kg (275-300); CALCIUM 7.8 mg/dL (8.5-10.1); CARBON DIOXIDE 27.2 mmol/L (21.0-32.0); CHLORIDE - SERUM 103 mmol/L (98-107); CREATININE - SERUM 0.8 mg/dL (0.6-1.3); GLUCOSE 110 mg/dL (74-106); MAGNESIUM - SERUM 1.4 mg/dL (1.8-2.4); SODIUM 140 mmol/L (136-145); UREA NITROGEN 8 mg/dL (7-18); eGFR NON AFRICAN AMERICAN > 90 mL/min (90-120)
[2019-05-09 07:20] LABS: APPEARANCE CLEAR (CLEAR); BILIRUBIN NEGATIVE (NEGATIVE); COLOR YELLOW (YELLOW); GLUCOSE NEGATIVE (NEGATIVE); KETONE NEGATIVE (NEGATIVE); NITRITE NEGATIVE (NEGATIVE); PROTEIN NEGATIVE (NEGATIVE); UROBILINOGEN NORMAL (NORMAL)
--- NOTE | 2019-05-09 09:58 | NUR ---
PATIENT ADMITTED LAST PM FOR RIGHT HIP FRACTURE. FLOORING MACHINE FEEDER DILAUDID STARTED FOR PAIN CONTROL. PATIENT REPORTS SEVERE PAIN WITH ANY MOVEMENT. PATIENT IS SCHEDULED FOR GAMMA NAIL TOMORROW AM. CL IN REACH, CL IN EASY REACH
--- NOTE | 2019-05-09 14:24 | MORECARE ---
CASE MANAGEMENT DISCHARGE SUMMARY PATIENT: APOLLO BELL UNIT: [id number] ADM DATE: 05/08/19 AGE: 53 : 67 SEX: M ROOM/BED: D.2235 AUTHOR: MINDA CARREON PHYSICIAN: REFERRING PHYSICIAN: NATIVIDAD VELASQUEZ MD DATE OF SERVICE: 05/09/19 Discharge Plan Patient Name: APOLLO BELL [facility] [facility] 1965 Planned Disposition: Home Anticipated Discharge Date: Discharge Date: Expected LOS: Initial Reviewer: [email or web address] Initial Review Date: 05/09/2019 Generated: 05/09/19 3:23 pm Patient Name: APOLLO BELL Page 38905 at 1424 All edits/amendments must be made on the electronic document DICTATION DATE: 05/09/19 1423 ISOBUTYLENE OPERATOR CHIEF: JESSICA 05/09/19 1423 RPT#: [id number] DC DATE: STATUS: ADM IN [facility] [address] [place] [address] END OF REPORT
--- NOTE | 2019-05-09 14:32 | MORECARE ---
CASE MANAGEMENT DISCHARGE SUMMARY PATIENT: APOLLO PATTON UNIT: [id number] ADM DATE: 05/08/19 AGE: 53 : 67 SEX: M ROOM/BED: D.2235 AUTHOR: LAURI,DOC PHYSICIAN: REFERRING PHYSICIAN: NATIVIDAD VELASQUEZ MD DATE OF SERVICE: 05/09/19 Discharge Plan Patient Name: APOLLO PTATON Facility: [facility]:[place] : 1965 Planned Disposition: Home Anticipated Discharge Date: Discharge Date: Expected LOS: Initial Reviewer: [email or web address] Initial Review Date: 05/09/2019 Generated: 05/09/19 3:32 pm Comments DCP- Discharge Planning Updated by [email or web address]: Ankita Conroy on 05/09/19 1:[address] Patient Name: APOLLO PATTON Admission Status: ER Accout number: [id number] Admission Date: 05-08-2019 : 1965 Admission Diagnosis: Attending: NATIVIDAD VELASQUEZ Current LOS: 1 Anticipated DC Date: Planned Disposition: Home Primary Insurance: [employer] Discharge Planning Comments: CM met with patient to complete initial dc planning assessment. CM educated patient on the CM role and verbal consent given by patient to complete assessment. Patient lives at home with his spouse. At discharge patient plans to return and feels this is a safe discharge. CM discussed availability of home health, rehab services, and medical equipment. Patient denied known discharge needs at this time. May need [facility] for PT set up prior to going home, at this time he declines home health. I left a list of HHS for him to review. CM will continue to follow and will assist as needed with dc plans/needs. Blanket Cutting Machine Operator: Ankita Conroy DCPIA - Discharge Planning Initial Assessment Updated by [email or web address]: Ankita Conroy on 05/09/19 2:25 pm * Is the patient Alert and Oriented? Yes * How many steps to enter\exit or inside your home? 5/0 * PCP Dr. Rolon * Pharmacy [facility] * Preadmission Environment Home with Family * ADLs Independent * Equipment Bedside Commode Cane Crutch Walker Wheelchair * List name and contact numbers for known caregivers / representatives who currently or will assist patient after discharge: Roz Patton - sp - H [phone] W [phone] * Verbal permission to speak to the caregivers and representatives has been obtained from the patient. Yes * Community resources currently utilized None * Additional services required to return to the preadmission environment? Yes * Can the patient safely return to the preadmission environment? Yes * Has this patient been hospitalized within the prior 30 days at any hospital? No Last DP export: 05/09/19 1:24 pm Patient Name: APOLLO PATTON Page [phone] at 1432 All edits/amendments must be made on the electronic document DICTATION DATE: 05/09/19 1432 FEATHER TRIMMER: JESSICA 05/09/19 1432 RPT#: [id number] DC DATE: STATUS: ADM IN [facility] [address] [place] [address] END OF REPORT
[2019-05-10] VITALS: BP 131/87
[2019-05-10 04:00] VITALS: BP 126/77
[2019-05-10 07:02] LABS: BASOPHILS 0.2 % (0-2); EOSINOPHILS 0.5 % (0-7); HEMATOCRIT 34.1 % (42.0-54.0); HEMOGLOBIN 11.9 g/dL (13.5-17.5); IMMATURE GRANULOCYTES 0.2 % (0-5); LYMPHOCYTES 25.8 % (15-50); MCH 32.1 pg (26.0-34.0); MCHC 34.9 g/dL (31.0-37.0); MCV 91.9 fL (80.0-100.0); MONOCYTES 13.7 % (2-11); NEUTROPHILS 59.6 % (40-80); PLATELET COUNT 142 10x3/uL (130-400); RBC 3.71 10x6/uL (4.20-6.10); RDW 12.5 % (11.5-14.5); WBC 6.6 10x3/uL (4.8-10.8)
[2019-05-10 07:26] LABS: CALC OSMOLALITY 274 mosm/kg (275-300); CALCIUM 7.9 mg/dL (8.5-10.1); CARBON DIOXIDE 27.3 mmol/L (21.0-32.0); CHLORIDE - SERUM 104 mmol/L (98-107); CREATININE - SERUM 0.8 mg/dL (0.6-1.3); GLUCOSE 94 mg/dL (74-106); MAGNESIUM - SERUM 1.5 mg/dL (1.8-2.4); PHOSPHOROUS 2.4 mg/dL (2.5-4.9); POTASSIUM - SERUM 3.9 mmol/L (3.5-5.1); SODIUM 139 mmol/L (136-145); eGFR NON AFRICAN AMERICAN > 90 mL/min (90-120)
[2019-05-10 07:27] LABS: UREA NITROGEN 5 mg/dL (7-18)
[2019-05-10 07:57] VITALS: BP 132/83
[2019-05-10 09:41] VITALS: BP 117/69
--- NOTE | 2019-05-10 15:08 | NUR ---
I have reviewed this patient and I concur with the Shift Assessment completed by the Licensed Practical Nurse today this shift.
[2019-05-10 16:07] VITALS: BP 129/79
--- NOTE | 2019-05-10 19:30 | NUR ---
LYING IN BED. EXTREMELY TALKATIVE. RATES PAIN IN RT HIP AND BACK 6. ASPHALT SPREADER OPERATOR DILAUDID IN USE. DRSG X3 NOTED TO RT HIP/THIGH ARE C/D/I. SCD NOTED BILAT. BRUISES NOTED TO BUE. PEDAL PULSES WNL BILAT. NS @ 125 ML/HR INFUSING IN LT AC WITHOUT DIFF. USES URINAL. ABRASION NOTED TO RT ELBOW AND LLE. NO EDEMA NOTED. TEMP IS ELEVATED. ENCOURAGED USE OF I.S. AND OBSERVED PT USING IT AT THIS TIME. SR ELEVATED X2. CL IN REACH.
--- NOTE | 2019-05-10 19:37 | NUR ---
MEDICATED WITH TYLENOL FOR ELEVATED TEMP.
[2019-05-10 19:45] VITALS: BP 114/85
--- NOTE | 2019-05-10 20:00 | NUR ---
IV LEAKING IN LT AC. IV CATH REMOVED. 20 G INSERTED IN LT UPPER ARM X1 ATTEMPT. PT STEFANO WELL.
[2019-05-11] VITALS: BP 119/71
[2019-05-11 04:00] VITALS: BP 127/67
--- NOTE | 2019-05-11 04:00 | NUR ---
MEDICATED WITH TYLENOL FOR ELEVATED TEMP. ENCOURAGED USE OF I.S.
[2019-05-11 06:46] LABS: BASOPHILS 0.3 % (0-2); EOSINOPHILS 0.6 % (0-7); HEMATOCRIT 28.8 % (42.0-54.0); HEMOGLOBIN 10.1 g/dL (13.5-17.5); IMMATURE GRANULOCYTES 0.2 % (0-5); LYMPHOCYTES 22.1 % (15-50); MCH 32.4 pg (26.0-34.0); MCHC 35.1 g/dL (31.0-37.0); MCV 92.3 fL (80.0-100.0); MEAN PLATELET VOLUME 9.8 fL (7.4-10.4); MONOCYTES 12.4 % (2-11); NEUTROPHILS 64.4 % (40-80); PLATELET COUNT 121 10x3/uL (130-400); RBC 3.12 10x6/uL (4.20-6.10); RDW 12.4 % (11.5-14.5); WBC 6.5 10x3/uL (4.8-10.8)
[2019-05-11 07:06] LABS: CALC OSMOLALITY 272 mosm/kg (275-300); CALCIUM 7.8 mg/dL (8.5-10.1); CHLORIDE - SERUM 101 mmol/L (98-107); CREATININE - SERUM 0.7 mg/dL (0.6-1.3); GLUCOSE 102 mg/dL (74-106); MAGNESIUM - SERUM 1.4 mg/dL (1.8-2.4); POTASSIUM - SERUM 3.9 mmol/L (3.5-5.1); SODIUM 138 mmol/L (136-145); UREA NITROGEN 5 mg/dL (7-18); eGFR NON AFRICAN AMERICAN > 90 mL/min (90-120)
[2019-05-11 07:19] LABS: CARBON DIOXIDE 27.8 mmol/L (21.0-32.0)
[2019-05-11 07:20] LABS: PHOSPHOROUS 3.2 mg/dL (2.5-4.9)
[2019-05-11 08:28] VITALS: BP 121/85
--- NOTE | 2019-05-11 10:43 | NUR ---
PATIENT REQUESTED TO GO OUTSIDE FOR SMOKE BREAK, REFUSED PATCH, PT GOT IN WC WITH ASSISTANCE, STATED PAIN MEDICATION IS REALLY NOT HELPING AND WANTED TO KNOW IF THERE WAS PO PAIN MEDS INSTAED, PT HAS PRN PAIN MED PO AND I ADVISED HIM WE WILL DC FIELD EDUCATION DIRECTOR AND CONTINUE WITH PO. NO OTHER NEEDS VOICED CONTINUE WITH PLAN OF CARE
[2019-05-11 12:51] VITALS: BP 130/78
[2019-05-11] MEDS ORDERED: PERCOCET 10-321 EAC1 PO (14:04)
[2019-05-11] MEDS ORDERED: ELIQUIS2.5 MG PO (14:05)
--- NOTE | 2019-05-11 14:20 | NUR ---
PT WAS DC BY ORTHO AT 1400, PATIENT HAD A TEMP OF 101 AT 0400 THEN MOST RECENT TEMP WAS 100 AT NOON, CONCERNED IN REGARDS TO POST OP TEMP, SPOKE WITH ASBESTOS BRAKE LINING FINISHER THAT ADVSIED TO CALL [facility] AND GET SECOND OPINION, SPOKE TO PATIENT AND EXPLAINED THAT HIS TEMP IS CONCERNING DUE TO RECENT PROCEDURE AND THAT WE MAY DELAY DC AT THIS TIME. PT STATED HE UNDERSTOOD, CONTINUE WITH PLAN OF CARE
[2019-05-11] MEDS ORDERED: Nicoderm [PBKC] TRANSDERM (15:06)
--- NOTE | 2019-05-11 15:12 | NUR ---
I have reviewed this patient and I concur with the Shift Assessment completed by the Licensed Practical Nurse today this shift.
--- NOTE | 2019-05-11 16:04 | MORECARE ---
CASE MANAGEMENT DISCHARGE SUMMARY PATIENT: APOLLO BELL UNIT: [id number] ADM DATE: 05/08/19 AGE: 53 : 67 SEX: M ROOM/BED: D.2235 AUTHOR: LAURI,DOC PHYSICIAN: REFERRING PHYSICIAN: NATIVIDAD VELSAQUEZ MD DATE OF SERVICE: 05/11/19 Discharge Plan Patient Name: APOLLO BELL Facility: [facility]:[place] : 1965 Planned Disposition: Home Anticipated Discharge Date: 05/11/19 Discharge Date: Expected LOS: 3 Initial Reviewer: [email or web address] Initial Review Date: 05/09/2019 Generated: 05/11/19 5:04 pm Comments DCP- Discharge Planning Updated by [email or web address]: Ankita Conroy on 05/09/19 1:[address] Patient Name: APOLLO BELL Admission Status: ER Accout number: [id number] Admission Date: 05-08-2019 : 1965 Admission Diagnosis: Attending: NATIVIDAD VELASQUEZ Current LOS: 1 Anticipated DC Date: Planned Disposition: Home Primary Insurance: [employer] Discharge Planning Comments: CM met with patient to complete initial dc planning assessment. CM educated patient on the CM role and verbal consent given by patient to complete assessment. Patient lives at home with his spouse. At discharge patient plans to return and feels this is a safe discharge. CM discussed availability of home health, rehab services, and medical equipment. Patient denied known discharge needs at this time. May need [facility] for PT set up prior to going home, at this time he declines home health. I left a list of HHS for him to review. CM will continue to follow and will assist as needed with dc plans/needs. Solution Analyst: Ankita Conroy DCPIA - Discharge Planning Initial Assessment Updated by [email or web address]: Ankita Conroy on 05/09/19 2:25 pm * Is the patient Alert and Oriented? Yes * How many steps to enter\exit or inside your home? 5/0 * PCP Dr. Rolon * Pharmacy [facility] * Preadmission Environment Home with Family * ADLs Independent * Equipment Bedside Commode Cane Crutch Walker Wheelchair * List name and contact numbers for known caregivers / representatives who currently or will assist patient after discharge: Roz caballero - H [phone] W [phone] * Verbal permission to speak to the caregivers and representatives has been obtained from the patient. Yes * Community resources currently utilized None * Additional services required to return to the preadmission environment? Yes * Can the patient safely return to the preadmission environment? Yes * Has this patient been hospitalized within the prior 30 days at any hospital? No Last DP export: 05/09/19 1:32 pm Patient Name: APOLLO BELL Page 43575 at 1604 All edits/amendments must be made on the electronic document DICTATION DATE: 05/11/19 160 SVP MONETIZATION: JESSICA 05/11/19 160 RPT#: [id number] DC DATE: STATUS: ADM IN [facility] [address] [place] [address] END OF REPORT
--- NOTE | 2019-05-11 16:17 | MORECARE ---
CASE MANAGEMENT DISCHARGE SUMMARY PATIENT: APOLLO PATTON UNIT: [id number] ADM DATE: 05/08/19 AGE: 53 : 67 SEX: M ROOM/BED: D.2235 AUTHOR: LAURI,DOC PHYSICIAN: REFERRING PHYSICIAN: NATIVIDAD VELASQUEZ MD DATE OF SERVICE: 05/11/19 Discharge Plan Patient Name: APOLLO PATTON Facility: [facility]:[place] : 1965 Planned Disposition: Home Anticipated Discharge Date: 05/11/19 Discharge Date: Expected LOS: 3 Initial Reviewer: [email or web address] Initial Review Date: 05/09/2019 Generated: 05/11/19 5:17 pm Comments DCP- Discharge Planning Updated by [email or web address]: Isela Bowens on 05/11/19 3:[address] CM NOTIFIED OF DISCHARGE. VISITED WITH THE PATIENT AT THE BEDSIDE. HE IS PLANNING TO SPEAK WITH DR ROLON REGARDING OUTPATIENT THERAPY ON SUNDAY. HE STATES HE HAS A WALKER AT HOME THAT BELONGED TO A FAMILY MEMBER. CM REVIEWED HIS CHART. THE PATIENT HAS BEEN FEBRILE UP TO 101.3 AND 100.8 THIS AFTER NOON. HE IS ALSO TACHYCARDIC. THE PATIENT IS POD #1. DISCUSSED W/ PRIMARY NURSE, KANU. ADVISED HER TO NOTIFY . CM DISCUSSED WITH NIRU THE INDUSTRIAL RELATIONS WORKER. CM SPOKE W/ DR BURGER IN PERSON. HE STATES THE PATIENT IS DISCHARGE. STATES " NO CLINICAL REASON FOR HIM TO STAY" " jUST POSTOP FEVERS". PATIENT HAS BEEN DISCHARGED BY DR MORALES AND DR BURGER. HE IS PLANNING ON DISCHARGE TODAY. DCP- Discharge Planning Updated by [email or web address]: Ankita Conroy on 05/09/19 1:[address] Patient Name: APOLLO PATTON Admission Status: ER Accout number: [id number] Admission Date: 05-08-2019 : 1965 Admission Diagnosis: Attending: NATIVIDAD VELASQUEZ Current LOS: 1 Anticipated DC Date: Planned Disposition: Home [facility] Discharge Planning Comments: CM met with patient to complete initial dc planning assessment. CM educated patient on the CM role and verbal consent given by patient to complete assessment. Patient lives at home with his spouse. At discharge patient plans to return and feels this is a safe discharge. CM discussed availability of home health, rehab services, and medical equipment. Patient denied known discharge needs at this time. [facility] set up prior to going home, at this time he declines home health. I left a list of HHS for him to review. CM will continue to follow and will assist as needed with dc plans/needs. Newscast Director: Ankita Conroy DCPIA - Discharge Planning Initial Assessment Updated by [email or web address]: Ankita Conroy on 05/09/19 2:25 pm * Is the patient Alert and Oriented? Yes * How many steps to enter\\exit or inside your home? 5/0 * PCP Dr. Rolon * Pharmacy [facility] * Preadmission Environment Home with Family * ADLs Independent * Equipment Bedside Commode Cane Crutch Walker Wheelchair * List name and contact numbers for known caregivers / representatives who currently or will assist patient after discharge: Roz Patton - sp - H [phone] W [phone] * Verbal permission to speak to the caregivers and representatives has been obtained from the patient. Yes * Community resources currently utilized None * Additional services required to return to the preadmission environment? Yes * Can the patient safely return to the preadmission environment? Yes * Has this patient been hospitalized within the prior 30 days at any hospital? No Last DP export: 05/11/19 3:04 pm Patient Name: APOLLO PATTON Page 86703 at 1617 All edits/amendments must be made on the electronic document DICTATION DATE: 05/11/191616 WEB PRESS OPERATOR ASSISTANT: JESSICA 05/11/191616 RPT#: [id number] DC DATE: STATUS: ADM IN [facility] [address] [place] [address] END OF REPORT
--- NOTE | 2019-05-11 16:34 | NUR ---
DR BURGER SAW PATIENT AND STATED PATIENT CAN BE DC HOME TO F/U WITH ORTHO, I WENT OVER S/S OF INFECTION WITH PT AND IF FEVER PERSISTS AND GETS UNCONTROLLED TO GO TO ER, WENT OVER DC INSTRUCTIONS AND WOUND CARE WITH PT. NO OTHER NEEDS, PT TAKEN DOWN TO FRONT ENTRANCE VIA WC BY IRON PLASTIC BULLET MAKER.
--- NOTE | 2019-05-14 07:02 | MORECARE ---
CASE MANAGEMENT DISCHARGE SUMMARY PATIENT: APOLLO PATTON UNIT: [id number] ADM DATE: 05/08/19 AGE: 53 : 67 SEX: M ROOM/BED: D.2235 AUTHOR: LAURIDOC PHYSICIAN: REFERRING PHYSICIAN: NATIVIDAD VELASQUEZ MD DATE OF SERVICE: 05/14/19 Discharge Plan Patient Name: APOLLO PATTON Facility: [facility]:[place] : 1965 Planned Disposition: Home Anticipated Discharge Date: 05/11/19 Discharge Date: 05/11/2019 Expected LOS: 3 Initial Reviewer: [email or web address] Initial Review Date: 05/09/2019 Generated: 05/14/19 8:02 am Comments DCP- Discharge Planning Updated by [email or web address]: Isela Bowens on 05/11/19 3:[address] CM NOTIFIED OF DISCHARGE. VISITED WITH THE PATIENT AT THE BEDSIDE. HE IS PLANNING TO SPEAK WITH DR ROLON REGARDING OUTPATIENT THERAPY ON SUNDAY. HE STATES HE HAS A WALKER AT HOME THAT BELONGED TO A FAMILY MEMBER. CM REVIEWED HIS CHART. THE PATIENT HAS BEEN FEBRILE UP TO 101.3 AND 100.8 THIS AFTER NOON. HE IS ALSO TACHYCARDIC. THE PATIENT IS POD #1. DISCUSSED W/ PRIMARY NURSE, KANU. ADVISED HER TO NOTIFY . CM DISCUSSED WITH NIRU THE [facility]. CM SPOKE W/ DR BURGER IN PERSON. HE STATES THE PATIENT IS DISCHARGE. STATES " NO CLINICAL REASON FOR HIM TO STAY" " jUST POSTOP FEVERS". PATIENT HAS BEEN DISCHARGED BY DR MORALES AND DR BURGER. HE IS PLANNING ON DISCHARGE TODAY. DCP- Discharge Planning Updated by [email or web address]: Ankita Conroy on 05/09/19 1:[address] Patient Name: APOLLO PATTON Admission Status: ER Accout number: [id number] Admission Date: 05-08-2019 : 1965 Admission Diagnosis: Attending: NATIVIDAD VELASQUEZ Current LOS: 1 Anticipated DC Date: Planned Disposition: Home [facility] Discharge Planning Comments: CM met with patient to complete initial dc planning assessment. CM educated patient on the CM role and verbal consent given by patient to complete assessment. Patient lives at home with his spouse. At discharge patient plans to return and feels this is a safe discharge. CM discussed availability of home health, rehab services, and medical equipment. Patient denied known discharge needs at this time. May need HHS for PT set up prior to going home, at this time he declines home health. I left a list of HHS for him to review. CM will continue to follow and will assist as needed with dc plans/needs. Transfer Worker: Ankita Conroy DCPIA - Discharge Planning Initial Assessment Updated by [email or web address]: Ankita Conroy on 05/09/19 2:25 pm * Is the patient Alert and Oriented? Yes * How many steps to enter\\exit or inside your home? 5/0 * PCP Dr. Rolon * Pharmacy [facility] * Preadmission Environment Home with Family * ADLs Independent * Equipment Bedside Commode Cane Crutch Walker Wheelchair * List name and contact numbers for known caregivers / representatives who currently or will assist patient after discharge: Roz Patton - sp - H [phone] W [phone] * Verbal permission to speak to the caregivers and representatives has been obtained from the patient. Yes * Community resources currently utilized None * Additional services required to return to the preadmission environment? Yes * Can the patient safely return to the preadmission environment? Yes * Has this patient been hospitalized within the prior 30 days at any hospital? No Last DP export: 05/11/19 3:17 pm Patient Name: APOLLO PATTON Page [id number] at 0702 All edits/amendments must be made on the electronic document DICTATION DATE: 05/14/19701 PAVER LAYER: JESSICA 05/14/19701 RPT#: [id number] DC DATE:05/11/19 STATUS: DIS IN [facility] [address] [address] END OF REPORT
--- NOTE | 2019-05-22 09:16 | OP ---
PATIENT NAME: APOLLO BELL MEDICAL RECORD: [id number] :[birth year] LOCATION:D.MS [id number] ADMISSION DATE:05/08/19 SURGEON: ALEX MORALES MD DATE OF OPERATION: 05/10/2019 PREOPERATIVE DIAGNOSIS: Intertrochanteric fracture of the right hip. POSTOPERATIVE DIAGNOSIS: Intertrochanteric fracture of the right hip. PROCEDURE: Cephalomedullary nailing of the right hip - gamma nail. SURGEON: Alex Morales MD MEDICATION COORDINATOR: Miguel Pang. INTRAOPERATIVE COMPLICATIONS: None. SUMMARY OF PATHOLOGIC FINDINGS: Consistent with the preoperative diagnosis, the patient had a displaced intertrochanteric hip fracture that reduced nicely with the appropriate amount of traction and rotation done under fluoroscopy. OPERATIVE SUMMARY IN DETAIL: After obtaining the appropriate preoperative orthopedic surgery consent as well as anesthetic consultation, evaluation, and clearance the patient was brought to the operating room and placed on the operating table in a supine position. After general laryngeal mask was administered, the patient was placed on the fracture table. The right leg was placed in the traction boot, left leg was placed in the well leg damon. Having completed this, the reduction maneuver was performed under fluoroscopic guidance. When the alignment was seen to be proper both AP and lateral planes, the patient's right hip was prepped and draped in routine sterile fashion. A small incision was made above the tip of the greater trochanter. Awl was then utilized to make created to create a guide point. A ball-tipped guidewire was then placed across the fracture. Proximal reaming was then followed by insertion of the short gamma nail. Gamma nail was inserted to the appropriate depth as seen on fluoroscopy. The cross pinning was then done in the usual fashion at 125 degrees in a low center position seen on AP and lateral planes. Appropriate reaming was followed by insertion of the nail. Derotational screw was then placed all the way to the bottom and turned back 2-1/2 turns to allow for compression, but not rotation. Having completed this, the fracture was stabilized. The wound was then irrigated and closed by Miguel Pang using #1 Vicryl, 2-0 Vicryl and skin nirav. Sterile dressings were applied. The patient was awakened and taken to the recovery room in stable condition. All final needle and sponge counts were correct. TRANSINT:[id number] Voice Confirmation ID: [id number] DOCUMENT ID: [id number] ALEX MORALES MD at 0916 CC: [id number] DICTATION DATE: 05/21/19 1132 UTILITY PORTER: 05/21/19 1225 DIS IN 05/11/19 [facility] [address] [id number]
== END 2019-05-11 16:38 | disposition home or self-care (01) | DRG 481 ==
LOC: D.ER 18:32 → D.MS 20:41
PROVIDERS: Family Medicine; Family Medicine Adult Medicine; Orthopaedic Surgery; ADMIT Family Medicine; ATTEND Family Medicine
PROC: 0QS636Z Reposition Right Upper Femur with Intramedullary Internal Fixation Device, Percutaneous Approach (ICD-10-PCS; principal; 2019-05-10 08:00)
DX: S72.141A Displaced intertrochanteric fracture of right femur, initial encounter for closed fracture (principal); F17.203 Nicotine dependence unspecified, with withdrawal; D62 Acute posthemorrhagic anemia; W10.9XXA Fall (on) (from) unspecified stairs and steps, initial encounter; Y93.K1 Activity, walking an animal; I10 Essential (primary) hypertension; M54.9 Dorsalgia, unspecified; I25.10 Atherosclerotic heart disease of native coronary artery without angina pectoris; J44.9 Chronic obstructive pulmonary disease, unspecified